=== PATIENT | male | born 1960 | race Caucasian/White ===

== ENCOUNTER 2017-10-02 01:56 | Emergency (ER) | payer OTHER | END 2017-10-02 03:08 | disposition other institution (70) | LOC: ED 01:56 | DX: S39.012A Strain of muscle, fascia and tendon of lower back, initial encounter (principal); V89.2XXA Person injured in unspecified motor-vehicle accident, traffic, initial encounter; Y93.I9 Activity, other involving external motion; Y92.488 Other paved roadways as the place of occurrence of the external cause; Y99.8 Other external cause status ==

== ENCOUNTER 2017-10-02 01:56 | Emergency (ER) | payer SELFPAY ==
[~2017-10-02] VITALS: Ht 175.3 cm; Wt 83.9 kg
[2017-10-02 01:59] VITALS: Ht 175.3 cm; Wt 83.9 kg
[2017-10-02 03:08] VITALS: BP 145/87
== END 2017-10-02 03:08 | disposition other institution (70) ==
LOC: ED 01:56
DX: S39.012A Strain of muscle, fascia and tendon of lower back, initial encounter (principal); Z76.89 Persons encountering health services in other specified circumstances; V49.88XA Car occupant (driver) (passenger) injured in other specified transport accidents, initial encounter; Y93.89 Activity, other specified; Y92.89 Other specified places as the place of occurrence of the external cause; Y99.8 Other external cause status